=== PATIENT | female | born 1990 | race Caucasian/White ===

== ENCOUNTER 2020-11-17 17:45 | Inpatient (IN) | payer BC ==
[~2020-11-17] VITALS: Ht 162.6 cm; Wt 70.5 kg
[2020-11-17] MEDS ORDERED: BUPROPION HCL150 M1 PO (21:56)
[2020-11-17] MEDS ORDERED: CAMILA0.35 MG PO (21:58)
[2020-11-17] MEDS ORDERED: ZONEGRAN100 MG PO (21:59)
[2020-11-17] MEDS ORDERED: ZANAFLEX4 MG PO (22:01)
[2020-11-17] MEDS ORDERED: ULTRAM50 MG PO (22:02)
[2020-11-18] VITALS: BP 107/71
[2020-11-18 00:06] VITALS: BP 122/79; BMI 26.7
[2020-11-18 00:23] LABS: BACTERIA MANY HPF (NONE SEEN); BILIRUBIN NEGATIVE (NEGATIVE); KETONE SMALL mg/dL (NEGATIVE); NITRITE POSITIVE (NEGATIVE); UROBILINOGEN NORMAL mg/dL (< 2); WHITE CELLS - URINE 0-5 HPF (0-4)
[2020-11-18 04:00] VITALS: BP 106/61
[2020-11-18 06:33] LABS: BASOPHILS 0.5 % (0-2); HEMATOCRIT 35.7 % (36.0-48.0); HEMOGLOBIN 11.8 g/dL (12-16); LYMPHOCYTE ABS# 1.56 10x3/uL (1.18-3.74); LYMPHOCYTES 27.9 % (15-50); MCH 30.3 pg (26.0-34.0); MCHC 33.1 g/dL (31.0-37.0); MCV 91.8 fL (80.0-100.0); MEAN PLATELET VOLUME 8.5 fL (7.4-10.4); MONOCYTES 8.6 % (2-11); NEUTROPHIL ABS# 3.42 10x3/uL (1.56-6.13); PLATELET COUNT 386 10x3/uL (130-400); RBC 3.89 10x6/uL (4.00-5.40); RDW 13.7 % (11.5-14.5); WBC 5.6 10x3/uL (4.8-10.8)
[2020-11-18 06:37] LABS: ALBUMIN 3.3 g/dL (3.4-5.0); ALKALINE PHOSPHATASE 62 U/L (30-120); ALT (SGPT) 32 U/L (10-68); AMYLASE - SERUM 28 U/L (25-115); C-REACTIVE PROTEIN < 0.2 mg/dL (0.0-0.9); CALC OSMOLALITY 277 mosm/kg (275-300); CALCIUM 8.4 mg/dL (8.5-10.1); CARBON DIOXIDE 26.8 mmol/L (21.0-32.0); CHLORIDE - SERUM 106 mmol/L (98-107); CHOL - HDL RATIO 1.9 ratio (2.3-4.1); CHOLESTEROL, TOTAL 102 mg/dL (0-200); CREATININE - SERUM 0.7 mg/dL (0.6-1.3); GLUCOSE 103 mg/dL (74-106); HDL CHOLESTEROL 55 mg/dL (32-96); LDL CHOLESTEROL 40 mg/dL (0-100); LDL-HDL RATIO 0.7 ratio (1.5-3.5); LIPASE 54 U/L (73-393); MAGNESIUM - SERUM 1.9 mg/dL (1.8-2.4); POTASSIUM - SERUM 3.4 mmol/L (3.5-5.1); PRE-ALBUMIN 22.1 mg/dL (18.0-35.7); PROTEIN - SERUM 6.3 g/dL (6.4-8.2); SODIUM 141 mmol/L (136-145); TRIGLYCERIDE 37 mg/dL (30-200); UREA NITROGEN 4 mg/dL (7-18); eGFR NON AFRICAN AMERICAN > 90 mL/min (90-120)
--- NOTE | 2020-11-18 07:15 | NUR ---
PATIENT WAS A DIRECT ADMIT, HER MOTHER IS AT BEDSIDE, PATIENT DID NOT WANT ANYTHING FOR PAIN, SHE SAID SHE DID NOT WANT TO TAKE IT UNLESS SHE NEEDS IT.
[2020-11-18 08:04] LABS: ERYTHROCYTE SEDIMENTATION RATE 6 mm/hr (0-20)
[2020-11-18 09:55] VITALS: BP 100/58
--- NOTE | 2020-11-18 10:21 | NUR ---
LYING IN BED AAOX3 MOTHER AT BEDSIDE. SKIN WARM AND DRY RESP EVEN AND NONLABORED. DENIES ANY PAIN OR DISCOMFORT. PREOP MEDS HAVE BEEN ADMISNISTERED FOR EGD CONSENTS SIGNED ON CHART. WILL CONTINUE TO MONITOR. CALL LIGHT IN REACH.
[2020-11-18 10:54] LABS: HCG URINE NEGATIVE (NEGATIVE)
--- NOTE | 2020-11-18 11:55 | NUR ---
RETURNED FROM EGD DROWSY EASILY AROUSED WITH VERBAL STIMULUS. NADN. KLONOPIN GIVEN PER MD ORDER. MOTHER AT [facility]. WILL CONTINUE TO MONITOR. CALL LIGHT IN REACH.
[2020-11-18 13:05] LABS: HCG URINE NEGATIVE (NEGATIVE)
[2020-11-18 14:23] VITALS: Ht 162.6 cm; Wt 70.5 kg
[2020-11-18 17:28] VITALS: BP 110/64
[2020-11-18 20:00] VITALS: BP 119/72
[2020-11-19] VITALS: BP 120/63
[2020-11-19 04:00] VITALS: BP 110/60
[2020-11-19 06:50] LABS: BASOPHILS 0.5 % (0-2); EOSINOPHILS 2.9 % (0-7); HEMATOCRIT 36.4 % (36.0-48.0); HEMOGLOBIN 11.9 g/dL (12-16); IMMATURE GRANULOCYTES 0.2 % (0-5); LYMPHOCYTE ABS# 1.72 10x3/uL (1.18-3.74); LYMPHOCYTES 31.2 % (15-50); MCH 30.2 pg (26.0-34.0); MCHC 32.7 g/dL (31.0-37.0); MCV 92.4 fL (80.0-100.0); MEAN PLATELET VOLUME 8.6 fL (7.4-10.4); MONOCYTES 10.1 % (2-11); NEUTROPHIL ABS# 3.04 10x3/uL (1.56-6.13); NEUTROPHILS 55.1 % (40-80); PLATELET COUNT 350 10x3/uL (130-400); RBC 3.94 10x6/uL (4.00-5.40); RDW 13.6 % (11.5-14.5); WBC 5.5 10x3/uL (4.8-10.8)
--- NOTE | 2020-11-19 07:00 | NUR ---
PATIENT HAS HAD NAUSEA AND VOMITING CONTROLLED WITH THE PRESCRIBED PAIN MEDICATION,SHE DID HAVE 900 ML GREEN EMESIS, NO FURTHER PROBLEMS.SHE APPEARED TO REST WELL THROUGH THE NIGHT.
[2020-11-19 07:27] LABS: ALKALINE PHOSPHATASE 57 U/L (30-120); ALT (SGPT) 37 U/L (10-68); BILIRUBIN - TOTAL 0.34 mg/dL (0.2-1.3); CHLORIDE - SERUM 107 mmol/L (98-107); CREATININE - SERUM 0.7 mg/dL (0.6-1.3); GLUCOSE 81 mg/dL (74-106); MAGNESIUM - SERUM 2.2 mg/dL (1.8-2.4); PHOSPHOROUS 3.4 mg/dL (2.5-4.9); POTASSIUM - SERUM 3.6 mmol/L (3.5-5.1); PROTEIN - SERUM 5.9 g/dL (6.4-8.2); SODIUM 140 mmol/L (136-145); eGFR NON AFRICAN AMERICAN > 90 mL/min (90-120)
[2020-11-19 07:29] LABS: CALC OSMOLALITY 275 mosm/kg (275-300); UREA NITROGEN 7 mg/dL (7-18)
[2020-11-19 08:38] VITALS: BP 110/66
--- NOTE | 2020-11-19 09:03 | OP ---
PATIENT NAME: TYRONE HAINES MEDICAL RECORD: [id number] :89 LOCATION:[id number] ADMISSION DATE:11/17/20 SURGEON: VALENTÍN BLACK MD DATE OF OPERATION: 11/18/2020 PREOPERATIVE DIAGNOSES: 1. Intractable nausea and vomiting. 2. Epigastric abdominal pain. POSTOPERATIVE DIAGNOSES: 1. Intractable nausea and vomiting. 2. Epigastric abdominal pain. 3. No significant hiatal hernia. Minimal esophagitis and minimal fundal gastritis. PROCEDURE: Esophagogastroduodenoscopy with duodenal cold endoscopic biopsies of the antrum to check for H. pylori and cold endoscopic biopsies of the mid esophagus to check for eosinophilic esophagitis. SURGEON: Valentín Black MD FIELD CREW CHIEF: None. BLOOD LOSS: Minimal. ANESTHESIA: IV sedation. COMPLICATIONS: None. The risks, possible complications, and alternatives to the procedure were explained to the patient. She elects to proceed. The patient was conveyed to the endoscopy suite electively on 11/18/2020. IV sedation was induced by the anesthesia staff. A bite block was inserted. A gastroscope was inserted into the mouth. This was advanced easily into the hypopharynx. The esophagus was easily intubated as were the stomach and duodenum. Cold endoscopic biopsies were obtained of the third portion of the duodenum. I withdrew into the antrum, angulus and the angulus view was obtained. Cold endoscopic biopsies of the antrum were obtained. On retroflexion, I noted no significant hiatal hernia. However, there was some very mild gastritis on dubois of the fundus. I then unretroflexed the scope and withdrew the esophagus. There was LA grade I distal esophagitis, so mid esophageal biopsies were obtained to rule out eosinophilic esophagitis. The endoscope was then withdrawn under direct vision. I noted no disease process that would account for the patient's abdominal pain, nausea and vomiting. We will proceed with a CT scan of the abdomen and pelvis. TRANSINT:[id number] Voice Confirmation ID: [id number] DOCUMENT ID: [id number] OPERATIVE REPORT [id number] ZAKITYRONEVALENTÍN BERUMEN MD at 0903 CC: [id number] DICTATION DATE: 11/18/201803 MEDICAL ASSISTANT INSTRUCTOR: 11/19/20 0113 ADM IN [facility] [address] [place] [address]
--- NOTE | 2020-11-19 10:14 | NUR ---
PATIENT TRANSFERRED TO GI LAB FOR COLONSOCOPY.
[2020-11-19 13:20] VITALS: BP 104/62
--- NOTE | 2020-11-19 15:29 | NUR ---
PATIENT CONCERNED ABBIE PHUONG IS MAKING HER DROWSY REQUESTS IT TO BE CHANGED TO [facility] NOTIFIED EEV ADHIKARI [employer] MECH[employer]IC WITH NEW ORDER TO CHANGE FREQUENCY NOTED.
[2020-11-19 16:28] VITALS: BP 106/62
--- NOTE | 2020-11-19 16:35 | OP ---
PATIENT NAME: TYRONE HAINES MEDICAL RECORD: [id number] :89 LOCATION:[id number] ADMISSION DATE:11/17/20 SURGEON: SONIDO BLACK MD DATE OF OPERATION: 11/19/2020 PREOPERATIVE DIAGNOSES: 1. Abdominal pain, rule out colitis. 2. Acute diarrhea. POSTOPERATIVE DIAGNOSES: 1. Abdominal pain, rule out colitis. 2. Acute diarrhea with normal-appearing colon and rectum. 3. One rectal polyp, at 15 cm, sessile and a 5 mm polyp. 4. Normal appearing ileum. PROCEDURES: 1. Total colonoscopy to cecum. 2. Hot biopsy forceps polypectomy x1. 3. Cold endoscopic random colon and rectal biopsies. 4. Stool culture. SURGEON: Sonido Black MD CRATER AND PACKER: None. BLOOD LOSS: Minimal. ANESTHESIA: IV sedation. COMPLICATIONS: None. The risks, possible complications, and alternatives of the procedure were explained to the patient and her mother. They elected to proceed. ENDOSCOPIC COURSE: The patient was conveyed to the endoscopy suite electively on 11/19/2020. IV sedation was induced by the anesthesia staff. The patient was placed in the Naqvi position. Digital rectal examination was performed. A colonoscope was inserted through the anus. It was easily advanced to the cecum. The prep was excellent. I intubated the ileum, which appeared normal. I then slowly withdrew the endoscope. I irrigated and aspirated extensively. Stool cultures were obtained. Random colon and rectal biopsies were obtained as well. One polyp was removed utilizing the hot biopsy forceps polypectomy technique. Normal imaging and narrow band imaging were both utilized to image the colon and rectum. Pullback was greater than 13-minute pullback. A retroflex view was obtained in the rectum. I then unretroflexed the scope and removed it under direct vision. I identified nothing that would account for the patient's abdominal pain. I noted no evidence of colitis or proctitis. The vascular pattern was normal. TRANSINT:[id number] Voice Confirmation ID: [id number] DOCUMENT ID: [id number] OPERATIVE REPORT [id number] ZAKIKYSONIDO BERUMEN MD at 1638 CC: [id number] DICTATION DATE: 11/19/20 1048 OUTPATIENT CODING SPECIALIST: 11/19/[address] [facility] [address] [place] [address]
[2020-11-19 20:00] VITALS: BP 103/67
[2020-11-20 04:00] VITALS: BP 108/55
[2020-11-20 06:03] LABS: BASOPHILS 0.5 % (0-2); EOSINOPHILS 4.4 % (0-7); HEMATOCRIT 36.7 % (36.0-48.0); HEMOGLOBIN 11.9 g/dL (12-16); IMMATURE GRANULOCYTES 0.2 % (0-5); LYMPHOCYTE ABS# 1.82 10x3/uL (1.18-3.74); LYMPHOCYTES 29.7 % (15-50); MCH 30.4 pg (26.0-34.0); MCHC 32.4 g/dL (31.0-37.0); MCV 93.9 fL (80.0-100.0); MEAN PLATELET VOLUME 9.2 fL (7.4-10.4); MONOCYTES 8.5 % (2-11); NEUTROPHIL ABS# 3.47 10x3/uL (1.56-6.13); NEUTROPHILS 56.7 % (40-80); PLATELET COUNT 392 10x3/uL (130-400); RBC 3.91 10x6/uL (4.00-5.40); RDW 13.8 % (11.5-14.5); WBC 6.1 10x3/uL (4.8-10.8)
[2020-11-20 06:35] LABS: ALKALINE PHOSPHATASE 62 U/L (30-120); ALT (SGPT) 43 U/L (10-68); BILIRUBIN - TOTAL 0.24 mg/dL (0.2-1.3); CALC OSMOLALITY 274 mosm/kg (275-300); CALCIUM 8.2 mg/dL (8.5-10.1); CARBON DIOXIDE 24.7 mmol/L (21.0-32.0); CHLORIDE - SERUM 104 mmol/L (98-107); CREATININE - SERUM 0.6 mg/dL (0.6-1.3); GLUCOSE 90 mg/dL (74-106); MAGNESIUM - SERUM 1.7 mg/dL (1.8-2.4); PHOSPHOROUS 4.2 mg/dL (2.5-4.9); POTASSIUM - SERUM 3.7 mmol/L (3.5-5.1); PROTEIN - SERUM 5.9 g/dL (6.4-8.2); SODIUM 138 mmol/L (136-145); eGFR NON AFRICAN AMERICAN > 90 mL/min (90-120)
[2020-11-20 06:37] LABS: UREA NITROGEN 10 mg/dL (7-18)
--- NOTE | 2020-11-20 06:42 | NUR ---
PATIENT TOLERATED EATING LAST NIGHT, NO EMESIS THIS CHIFT, MOTHEER WAS AT BEDSIDE, SHE IS CURRENTLY RESTING IN BED WITH HER EYES CLOSED.
--- NOTE | 2020-11-20 07:28 | NUR ---
ALERT AND ORIENTED. ASSESSMENT COMPLETE. BED LOW. CALL COONEY AND PERSONAL ITEMS IN REACH. WILL CONTINUE TO MONITOR.
[2020-11-20 08:44] VITALS: BP 133/70
--- NOTE | 2020-11-20 10:49 | NUR ---
PATIENT STATES READY TO BE DC HOME. DR BLACK PAGED FOR DC ORDER. WAITING CALL BACK.
[2020-11-20] MEDS ORDERED: REGLAN10 MG PO (11:09)
[2020-11-20] MEDS ORDERED: KLONOPIN0.5 MG PO (11:10)
[2020-11-20] MEDS ORDERED: PROTONIX20 MG PO (11:10)
--- NOTE | 2020-11-20 12:37 | NUR ---
DC EDUCATION PROVIDED BOTH WRITTEN AND VERBAL. VERBALIZED UNDERSTANDING. STATES WAS SUPPOSED TO HAVE RX FOR LEVAQUIN FOR 10 DAYS FOR UTI ON DC HOME. SPOKE WITH KATHIA QUEZADA APN WHO STATES WILL CALL RX IN TO PATIENT'S PHARMACY. PATIENT MADE AWARE. DENIES FURTHER NEEDS. IV REMOVED FRIM RIGHT WRIST WITH TIP INTACT. PATIENT DC HOME WITH PARENTS WITH ALL BELONGIGNS.
[2020-11-20] MEDS ORDERED: LEVOFLOXACIN500 MG PO (14:22)
== END 2020-11-20 12:50 | disposition home or self-care (01) | DRG 390 ==
LOC: D.MS 17:45
PROVIDERS: Anesthesiology; Emergency Medicine; ADMIT Surgery; ATTEND Surgery
PROC: 0DB78ZX Excision of Stomach, Pylorus, Via Natural or Artificial Opening Endoscopic, Diagnostic (ICD-10-PCS; 2020-11-18)
PROC: 0DB28ZX Excision of Middle Esophagus, Via Natural or Artificial Opening Endoscopic, Diagnostic (ICD-10-PCS; 2020-11-18)
PROC: 0DB98ZX Excision of Duodenum, Via Natural or Artificial Opening Endoscopic, Diagnostic (ICD-10-PCS; principal; 2020-11-18 10:54)
PROC: 0DBE8ZZ Excision of Large Intestine, Via Natural or Artificial Opening Endoscopic (ICD-10-PCS; 2020-11-19)
PROC: 0DBP8ZX Excision of Rectum, Via Natural or Artificial Opening Endoscopic, Diagnostic (ICD-10-PCS; 2020-11-19)
PROC: 0DBE8ZX Excision of Large Intestine, Via Natural or Artificial Opening Endoscopic, Diagnostic (ICD-10-PCS; 2020-11-19)
DX: K56.7 Ileus, unspecified (principal); K21.9 Gastro-esophageal reflux disease without esophagitis; R11.2 Nausea with vomiting, unspecified; E87.6 Hypokalemia; R10.13 Epigastric pain; K29.00 Acute gastritis without bleeding; E86.0 Dehydration